=== PATIENT | male | born 1960 | race Caucasian/White ===

== ENCOUNTER 2018-11-27 09:45 | Day surgery (SDC) | payer OTHER ==
[~2018-11-27] VITALS: Ht 160 cm; Wt 113.4 kg
[2018-11-27] MEDS ORDERED: CEFAZOLIN SOD 2 GM in D5W 50 ML IV ONE (10:30)
[2018-11-27] MEDS ORDERED: fentaNYL CITRATE/PF 100 MCG/2 ML AMP IVP ONE (12:45)
[2018-11-27] MEDS ORDERED: LR 1,000 ML IV.SOLN IV ONE (12:45)
[2018-11-27] MEDS ORDERED: SEVOFLURANE 15 MIN GAS INH ONE (12:45)
[2018-11-27] MEDS ORDERED: WATER FOR IRRIGATION,STERILE 1,000 ML IRRIG.SOLN IR ONE (12:45)
[2018-11-27] MEDS ORDERED: PROPOFOL 200MG/ 20ML VIAL (DIPRIVAN) IV ONE (12:45)
[2018-11-27] MEDS ORDERED: MIDAZOLAM HCL 5 MG/5 ML VIAL IVP ONE (12:45)
[2018-11-27] MEDS ORDERED: BUPIVACAINE /EPINEPHRINE/PF 0.25% 30 ML VIAL INJ ONE (12:45)
[2018-11-27] MEDS ORDERED: KETOROLAC TROMETHAMINE 30 MG VIAL IVP PRN (13:30)
[2018-11-27] MEDS ORDERED: ONDANSETRON HCL 4 MG/2 ML VIAL IVP PRN (13:30)
[2018-11-27] MEDS ORDERED: fentaNYL CITRATE/PF 100 MCG/2 ML AMP IVP PRN ×2 (13:30)
[2018-11-27] MEDS ORDERED: ACETAMINOPHEN/CODEINE 300 MG-30 MG TABLET PO PRN (13:45)
[2018-11-27] MEDS ORDERED: ACETAMINOPHEN/CODEINE 300 MG-30 MG TABLET ONE (14:58)
[2018-11-27 15:28] VITALS: BP_SYST 136
== END 2018-11-27 15:40 | disposition home or self-care (01) ==
LOC: SDS 09:45
PROVIDERS: ATTEND Surgery
DX: S70.351A Superficial foreign body, right thigh, initial encounter (principal); X58.XXXA Exposure to other specified factors, initial encounter; Y93.89 Activity, other specified; Y92.89 Other specified places as the place of occurrence of the external cause; Y99.9 Unspecified external cause status; E66.9 Obesity, unspecified; Z79.899 Other long term (current) drug therapy; Z98.890 Other specified postprocedural states
CPT/HCPCS: 20103; 88300; 88341; 88342; 88360; J0690; J7060; J7120; J2250; J2704; J3010; J3490

== ENCOUNTER 2020-12-08 06:24 | Day surgery (SDC) | payer OTHER, SELFPAY ==
[~2020-12-08] VITALS: Ht 167.6 cm; Wt 108.9 kg
[2020-12-08] MEDS ORDERED: MIDAZOLAM HCL 5 MG/5 ML VIAL ONE (07:54)
[2020-12-08] MEDS ORDERED: fentaNYL CITRATE/PF 100 MCG/2 ML AMP ONE (07:55)
[2020-12-08 10:00] VITALS: BP_SYST 139
== END 2020-12-08 10:05 | disposition home or self-care (01) ==
LOC: SDS 06:24 → SMU 06:26 → SDS 10:05
PROVIDERS: ATTEND Surgery
DX: Z12.11 Encounter for screening for malignant neoplasm of colon (principal); K64.8 Other hemorrhoids; K64.4 Residual hemorrhoidal skin tags; Z86.010 Personal history of colon polyps
CPT/HCPCS: 36415; 45378; 87426; 99152; G0378; J2250; J3010; J7030

== ENCOUNTER 2023-04-11 09:49 | Day surgery (SDC) | payer OTHER ==
[~2023-04-11] VITALS: Ht 167.6 cm; Wt 108.9 kg
[~2023-04-11 09:49] MED LIST: DEXAMETHASONE SOD PHOSPHATE 4 MG/ML VIAL ONE; LIDOCAINE 2%, 20 ML MDV ONE; NORMAL SALINE 10 ML VIAL ONE; iopamidoL 50 ML VIAL IV ONE
[2023-04-11] MEDS ORDERED: DIPHENHYDRAMINE INJ 50 MG/ML VIAL ONE (12:23)
[2023-04-11] MEDS ORDERED: fentaNYL CITRATE/PF 100 MCG/2 ML AMP ONE (12:23)
[2023-04-11] MEDS ORDERED: ONDANSETRON HCL 4 MG/2 ML VIAL ONE (12:24)
[2023-04-11] MEDS ORDERED: MIDAZOLAM HCL 5 MG/5 ML VIAL ONE (12:24)
[2023-04-11 13:00] VITALS: O2SAT 97
[2023-04-11] MEDS ORDERED: MIDAZOLAM HCL 5 MG/5 ML VIAL IVP ONE ×3 (13:08→13:14)
[2023-04-11] MEDS ORDERED: fentaNYL CITRATE/PF 100 MCG/2 ML AMP IVP ONE (13:10)
[2023-04-11 17:40] VITALS: BP_SYST 132; PULSE 82; RESP 18
== END 2023-04-12 14:25 | disposition home or self-care (01) ==
LOC: SDS 09:49 → SMU 09:51 → SDS 04-12 14:25
PROVIDERS: ATTEND Internal Medicine
DX: M50.13 Cervical disc disorder with radiculopathy, cervicothoracic region (principal); I10 Essential (primary) hypertension; M79.10 Myalgia, unspecified site; M51.9 Unspecified thoracic, thoracolumbar and lumbosacral intervertebral disc disorder; Z96.653 Presence of artificial knee joint, bilateral
CPT/HCPCS: 62321; J1100; J2001; J2250; J3010; Q9967 ×2; 76000; J1200; J2405

== ENCOUNTER 2023-05-14 08:33 | Day surgery (SDC) | payer OTHER ==
[~2023-05-14] VITALS: Ht 167.6 cm; Wt 108.9 kg
[2023-05-14] MEDS ORDERED: MIDAZOLAM HCL 5 MG/5 ML VIAL ONE (08:36)
[2023-05-14] MEDS ORDERED: fentaNYL CITRATE/PF 100 MCG/2 ML AMP ONE (08:37)
[2023-05-14] MEDS ORDERED: DIPHENHYDRAMINE INJ 50 MG/ML VIAL ONE (08:37)
[2023-05-14 13:31] VITALS: O2SAT 98
[2023-05-14 17:02] VITALS: BP_SYST 140; PULSE 74; RESP 16
== END 2023-05-14 12:30 | disposition home or self-care (01) ==
LOC: SDS 08:33 → SMU 08:35 → SDS 12:30
PROVIDERS: ATTEND Internal Medicine
DX: M51.16 Intervertebral disc disorders with radiculopathy, lumbar region (principal); M51.9 Unspecified thoracic, thoracolumbar and lumbosacral intervertebral disc disorder; M50.90 Cervical disc disorder, unspecified, unspecified cervical region; M79.10 Myalgia, unspecified site; I10 Essential (primary) hypertension; Z96.653 Presence of artificial knee joint, bilateral; Z79.899 Other long term (current) drug therapy
CPT/HCPCS: 62323; J1200; J2250; J3010; 76000